=== PATIENT | female | born 2000 | race Caucasian/White ===

== ENCOUNTER 2024-01-30 12:01 | Outpatient (CLI) | payer MEDICAID ==
[2024-01-30] VITALS (9 sets, daily range): BP systolic 125–167; BP diastolic 74–113; PULSE 69–134; TEMP 98
[~2024-01-30] VITALS: Ht 167.6 cm; Wt 126.8 kg
--- NOTE | 2024-01-30 12:00 | NUR ---
PT AMBULATORY TO UNIT WITH SUPPORT PERSON. REPORTS NO LOF, NO VAGINAL BLEEDING, POSITIVE MOVEMENT. ELEVATED BP ON FIRST EXAM, EFM CAT 1.
--- NOTE | 2024-01-30 12:00 | NUR ---
ORDERS RECEIVED BY JENNIFER SILVA RN.
[~2024-01-30 12:01] MED LIST: ADVOCATE BLOOD1 EAC1 MC; CALCIUM-500 5001 CTB PO; CEPHALEXIN250 M1 PO; CEPHALEXIN500 M1 PO; CHERATUSSIN AC120 ML PO; EXPECTORANT DM240 ML; MOTRIN 800800 MG/TAB PO; NO HOME MEDICATIONS; NORMODYNE200 MG PO; PRENATAL TABLET PO; PROCARDIA XL90 MG PO; SUDANYL PE5 MG PO; TYLENOL 325MG325 MG PO; ZOLOFT 50MG50 MG PO
[2024-01-30] MEDS ORDERED: STOOL SOFTENER100 M2 PO (12:18)
[2024-01-30] MEDS ORDERED: ASPIRIN 81M81 MG/TA2 PO (12:19)
[2024-01-30] MEDS ORDERED: PRILOSEC 20MG20 MG PO (12:19)
[2024-01-30 12:58] LABS: BASO % 0.3 % (0.0-2.0); EOS # 0.1 K/mm3 (0.0-0.7); EOS % 0.9 % (0.0-4.0); GRAN % 71.7 % (42.2-75.2); HEMATOCRIT 37.1 % (37.0-47.0); HEMOGLOBIN 13.1 g/dl (12.5-16.0); LYMPH # 2.4 K/mm3 (1.2-3.4); LYMPH % 21.3 % (20.0-51.0); MEAN CELL VOLUME 87 fl (80.0-100.0); MEAN CORPUSCULAR HEMOGLOBIN 31 pg (27-31); MEAN CORPUSCULAR HGB CONC 35 g/dl (33.0-37.0); MEAN PLATELET VOLUME 9.5 fl (7.4-10.4); MONO # 0.6 K/mm3 (0.1-0.6); MONO % 5.5 % (1.7-9.3); PLATELET COUNT 263 K/mm3 (130-400); RED BLOOD COUNT 4.28 M/mm3 (4.10-5.30); REDCELL DISTRIBUTION WIDTH-CV 13.4 % (11.5-14.5)
[2024-01-30 13:01] LABS: URINE APPEARANCE CLEAR (CLEAR/HAZY); URINE BLOOD NEGATIVE (NEGATIVE); URINE COLOR YELLOW (YELLOW); URINE GLUCOSE NEGATIVE (NEGATIVE); URINE KETONE TRACE (NEGATIVE); URINE NITRATE NEGATIVE (NEGATIVE); URINE PROTEIN(semi-quant) 2+ (NEGATIVE); URINE UROBILINOGEN 0.2 E.U/dL (0.2-1.0)
--- NOTE | 2024-01-30 13:05 | NUR ---
NOTIFIED OF PTS BP AND LABS THAT HAVE RESULTED. START 24 HOUR URINE, HAVE PT RETURN IT TO HOSPITAL TOMORROW AND RETURN FOR MONITORING.
[2024-01-30] MEDS ORDERED: Betamethasone Acetate/Na Phos 6 MG/ML 5 ML MDV IM SCH (13:15)
[2024-01-30 13:21] LABS: ALBUMIN 2.3 g/dL (3.5-5.0); BILIRUBIN,TOTAL 0.2 mg/dL (0.2-1.2); CREATININE, serum 0.77 mg/dL (0.57-1.11); POTASSIUM 3.9 mEq/L (3.5-4.5); TOTAL PROTEIN 6.1 g/dl (6.2-8.1)
[2024-01-30 13:24] LABS: COLLECTION METHOD CLEAN CATCH
[2024-01-30 13:25] LABS: URINE BACTERIA OCCASIONAL /hpf (NONE SEEN); URINE RBC 0-2 /hpf (0-2)
[2024-01-30] MEDS ORDERED: NIFEdipine XL 60 MG TAB PO SCH (14:16)
== END 2024-01-30 14:30 | disposition home or self-care (01) ==
LOC: LDRO 12:01
PROVIDERS: Obstetrics & Gynecology
DX: O16.3 Unspecified maternal hypertension, third trimester (principal); Z3A.35 35 weeks gestation of pregnancy
CPT/HCPCS: J0702

== ENCOUNTER 2024-01-31 13:13 | Outpatient (CLI) | payer MEDICAID ==
[~2024-01-31] VITALS: Ht 165.1 cm; Wt 126.8 kg
[~2024-01-31 13:13] MED LIST changes: +ASPIRIN 81M81 MG/TA2 PO; +PRILOSEC 20MG20 MG PO; +STOOL SOFTENER100 M2 PO
--- NOTE | 2024-01-31 13:20 | NUR ---
PT AMBULATORY TO UNIT WITH PARTNER, PT ORIENTED TO ROOM AND PLAN OF CARE. PT ON UNIT FOR NST, TURN IN 24HR URINE TO LAB, AND REPEAT MEDICATION INJECTION. PT REPORTING SHE HAS HAD A HEADACHE SINCE 01/29 EVENING, DENIES TAKING TYLENOL. PT ALSO REPORTS THAT SHE HAS BEGUN TO FEEL OCCATIONAL LOWER BACK PAIN, BUT NOT REGULAR INTERVALS. PT DENIES VAGINAL BLEEDING AND LEAKING OF FLUID, REPORTS POSITIVE MOVEMENT, AND DENIES FEELING CONTRACTIONS.
[2024-01-31 13:45] VITALS: BP 138/86; PULSE 96; TEMP 98.2
[2024-01-31 14:00] VITALS: PULSE 90
[2024-01-31] MEDS ORDERED: Betamethasone Acetate/Na Phos 6 MG/ML 5 ML MDV IM ONE (14:00)
--- NOTE | 2024-01-31 14:00 | NUR ---
UNABLE TO TRACE PT VS DUE TO PT POSITION AND HABITUS, THIS RN AT PT BEDSIDE AT THIS TIME ATTEMPTING TO ADJUST AND TRACE ACCURATELY, PT AWAKE AND ALERT X3, EFM CAT 1.
[2024-01-31 14:15] VITALS: BP 130/82; PULSE 91
[2024-01-31 14:25] VITALS: BP 123/75; PULSE 82
--- NOTE | 2024-01-31 15:20 | NUR ---
THIS RN DISCUSSES PT DISCHARGE PLAN PER DISCHARGE ORDERS, PT SIGNS DISCHARGE PAPER AND IS VERBALLY UNDERSTANDING. PT VS STABLE, EFM CAT 1, PT AWAKE AND ALERT X3, PT PARTNER SUPPORTIVE. PT AND PT PARTNER AMBULATORY OFF UNIT WITH DISCHARGE PACKET.
[2024-01-31 15:25] LABS: URINE TOTAL VOLUME - 24 HRS 2700 mL/24 hr
[2024-01-31 15:37] LABS: PROTEIN, TOTAL URINE random 48 mg/dL
== END 2024-01-31 15:30 | disposition home or self-care (01) ==
LOC: LDRO 13:13
PROVIDERS: Obstetrics & Gynecology
DX: O13.3 Gestational [pregnancy-induced] hypertension without significant proteinuria, third trimester (principal); Z3A.35 35 weeks gestation of pregnancy
CPT/HCPCS: J0702

== ENCOUNTER 2024-02-03 04:46 | Inpatient (IN) | payer MEDICAID ==
[2024-02-03] VITALS (63 sets, daily range): BP systolic 100–187; BP diastolic 55–120; PULSE 75–140; TEMP 97.8–98.7
[~2024-02-03] VITALS: Ht 165.1 cm; Wt 127.3 kg
--- NOTE | 2024-02-03 04:55 | NUR ---
PT ARRIVED WITH COMPLAINT OF RACING HEART AFTER GETTING UP TO USE BATHROOM. SHE CHECKED HER BP AND IT WAS HIGH SO SHE CAME IN TO BE ASSESSED. STATES SHE HAS A MILD FRONTAL HEADACHE. DENIES VISUAL DISTURBANCE OR EPIGASTRIC PAIN. REPORTS ACTIVE FM, DENIES REGULAR CONTRACTIONS, ROM OR VAGINAL BLEEDING. WAS STARTED ON PROCARDIA EARLIER THIS WEEK AND HAD LABS TO EVALUATE FOR PREECLAMPSIA. SHE STATES LABS ARE PENDING. SHE TOOK HER PROCARDIA YESTERDAY AT 9AM.
[2024-02-03] MEDS ORDERED: LR 1,000 ML IV PRN (05:15)
[2024-02-03] MEDS ORDERED: DULCOLAX STOOL100 MG PO (05:20)
[2024-02-03] MEDS ORDERED: hydrALAZINE 20 MG/ML 1 ML VIAL IV PRN ×2 (06:00)
--- NOTE | 2024-02-03 06:01 | NUR ---
IV START AND LAB DRAW PER CHARGE NURSE AFTER 2 ATTEMPTS PER THIS NURSE. 0607-1ST DOSE HYDRALAZINE GIVEN PER ORDER OVER 2 MIN.
--- NOTE | 2024-02-03 06:28 | NUR ---
2ND DOSE OF HYDRALAZINE GIVEN PER ORDER OVER 2 MIN. REPORT TO DAY SHIFT
[2024-02-03 06:34] LABS: BASO % 0.2 % (0.0-2.0); EOS # 0.1 K/mm3 (0.0-0.7); EOS % 0.5 % (0.0-4.0); GRAN # 8.6 K/mm3 (1.4-6.5); GRAN % 70.6 % (42.2-75.2); HEMATOCRIT 41.2 % (37.0-47.0); HEMOGLOBIN 14.5 g/dl (12.5-16.0); LYMPH # 2.6 K/mm3 (1.2-3.4); LYMPH % 21.2 % (20.0-51.0); MEAN CELL VOLUME 88 fl (80.0-100.0); MEAN CORPUSCULAR HEMOGLOBIN 31 pg (27-31); MEAN CORPUSCULAR HGB CONC 35 g/dl (33.0-37.0); MEAN PLATELET VOLUME 9.5 fl (7.4-10.4); MONO # 0.8 K/mm3 (0.1-0.6); MONO % 6.6 % (1.7-9.3); PLATELET COUNT 290 K/mm3 (130-400); RED BLOOD COUNT 4.69 M/mm3 (4.10-5.30); REDCELL DISTRIBUTION WIDTH-CV 13.6 % (11.5-14.5)
[2024-02-03] MEDS ORDERED: LR 1,000 ML IV SCH ×2 (06:45→07:15)
[2024-02-03] MEDS ORDERED: ceFAZolin 2 G in Water For Injection,Sterile 20 ML IV ONE ×2 (06:45→07:15)
[2024-02-03] MEDS ORDERED: LR & Oxytocin 500 ML IV SCH (06:45)
[2024-02-03 07:00] LABS: ALBUMIN 2.5 g/dL (3.5-5.0); BILIRUBIN,TOTAL 0.3 mg/dL (0.2-1.2); CALCIUM 8.9 mg/dL (8.4-10.2); CREATININE, serum 0.65 mg/dL (0.57-1.11); POTASSIUM 3.8 mEq/L (3.5-4.5); TOTAL PROTEIN 6.4 g/dl (6.2-8.1)
[2024-02-03] MEDS ORDERED: Calcium Gluconate 1,000 MG (4.65 mEq)/10 ML VIAL IV PRN (07:15)
[2024-02-03] MEDS ORDERED: Magnesium Sulfate 8% 50 ML IV ONE (07:15)
[2024-02-03] MEDS ORDERED: Magnesium Sulfate 4% 50 ML IV PRN (07:15)
[2024-02-03] MEDS ORDERED: Lidocaine 2% (20 MG/ML) 20 ML UROJET UR SCH (08:42)
[2024-02-03] MEDS ORDERED: diphenhydrAMINE 25 MG CAP PO PRN (08:45)
[2024-02-03] MEDS ORDERED: diphenhydrAMINE 50 MG/ML 1 ML VIAL IV PRN (08:45)
[2024-02-03] MEDS ORDERED: Naloxone 0.4 MG/ML VIAL IV PRN ×2 (08:45→16:00)
[2024-02-03] MEDS ORDERED: ePHEDrine 50 MG/10 ML VIAL IV PRN (08:45)
[2024-02-03] MEDS ORDERED: Ondansetron 4 MG/2 ML VIAL IV PRN (08:45)
[2024-02-03] MEDS ORDERED: Magnesium Sulfate 4% 500 ML IV SCH (09:30)
[2024-02-03] MEDS ORDERED: ROPivacaine PF 0.2% 200 ML IV ONE (09:45)
--- NOTE | 2024-02-03 11:14 | NUR ---
DR ZAYAS CALLED AT 0655 TO VERIFY HYPERTENSION ORDERS, CARE TO BE ASSUMED BY DR SULLIVAN. PATIENT HAS REPEAT TREATABLE PRESSURES. HYDRALAZINE GIVEN PREVIOUSLY TWICE. AT 0630 PATIENT SVE WAS 1:30:-2. 20 MG OF LABETELOL GIVEN AT 0700. AT 0705 DR SULLIVAN HERE TO SEE PATIENT. ORDERS TO ADMIT, LR, PITOCIN AND MAG SULFATE TO BE STARTED. 2ND IV STARTED FOR MAG SULFATE, ORDERS TO HOLD ON MAG UNTIL DR SULLIVAN DONE WITH SURGERY SO SHE CAN PLACE STEARNS DUE TO PATIENTS ANXIETY OVER THE CATHETER. IV STARTED AT 0800.LR AND PITOCIN STARTED AT 0810. ANCEF GIVEN AT 0830 FOR GBS UNKNOWN. MAG SULFATE 4G BOLUS INFUSING AT 0830. AT 0850 LAURIE AT BEDSIDE TO APPLY LIDOCAINE TO URETHRA AND PLACE STEARNS CATHETER. DR SULLIVAN ALSO PERFORMED SVE AND AROM AT 0856. SVE WAS 2:50:-2. PITOCIN INCREASED PER PROTOCOL. BOUBACAR ALVES CALLED AT 0928. NO LR BOLUS GIVEN DUR TO ELEVATED BP'S. SINGLE SHOT OF EPIDURAL AT 1001. VSS BUT BP ELEVATED. ORDERS FROM BOUBACAR TO HOLD LABETELOL DUE TO EPIDURAL. PATIENT TOLERATED WELL. PATIENT TO WEDGE LEFT POSITION AND PATIENT GETTING GOOD PAIN RELIEF. WILL CONTINUE TO MONITOR
[2024-02-03] MEDS ORDERED: ceFAZolin 2 G in Water For Injection,Sterile 20 ML IV SCH (15:00)
[2024-02-03] MEDS ORDERED: ceFAZolin 1 G in Water For Injection,Sterile 10 ML IV SCH (15:11)
[2024-02-03] MEDS ORDERED: Acetaminophen 500 MG TAB PO PRN ×2 (15:15→16:00)
--- NOTE | 2024-02-03 15:34 | NUR ---
PT CALLS OUT AT 1521 STATING THAT SHE FEELS PRESSURE. THIS RN AT BEDSIDE TO PERFORM SVE. SVE /0. NURSE REMAINS AT BEDSIDE SEARCHING FOR FHTS. PT REPOSITIONED ONTO BACK. SD RN AT BEDSIDE, PT BEGINS VOMITING AT 1531. DR. SULLIVAN ENTERS ROOM UPON HEARING PT VOMITING. DR. SULLIVAN ORDERS TO SHUT OFF MAGNESIUM. DR. SULLIVAN IS GLOVING UP, DELIVERS SPONTANEOUSLY WHILE PT IS VOMITING. DR. SULLIVAN IMMEDIATELY ATTENDS TO .
[2024-02-03] MEDS ORDERED: Phenylephrine/Mineral Oil/Petrolatum 57 GM TUBE RC PRN (16:00)
[2024-02-03] MEDS ORDERED: Measles/Mumps/Rubella Virus Vaccine Live w Diluent 0.5 ML VIAL SQ SCH (16:00)
[2024-02-03] MEDS ORDERED: Loratadine 10 MG TAB PO PRN (16:00)
[2024-02-03] MEDS ORDERED: Ibuprofen 800 MG TAB PO SCH (16:00)
[2024-02-03] MEDS ORDERED: Magnes Hydrox (MOM) 80 MG/ML 30 ML CUP PO PRN (16:00)
[2024-02-03] MEDS ORDERED: oxyCODONE 5 MG TAB PO PRN (16:00)
[2024-02-03] MEDS ORDERED: Witch Hazel 50% Pads Bulk TUB TP PRN (16:00)
[2024-02-03] MEDS ORDERED: Mag/Al Hydrox/Simeth Susp 30 ML CUP PO PRN (16:00)
[2024-02-03] MEDS ORDERED: Sennosides/Docusate 8.6-50 MG TAB PO SCH (17:00)
[2024-02-03] MEDS ORDERED: NIFEdipine XL 60 MG TAB PO SCH (17:47)
--- NOTE | 2024-02-03 18:48 | NUR ---
ASSESSMENT WNL. DENIES HEADACHE OR VISUAL DISTURBANCE OR EPIGASTRIC PAIN. PT UP FOR FIRST AMBULATION POST TO BR. JR CARE DONE. PT UNABLE TO VOID AT THIS TIME. DISCUSSED BLOOD PRESSURES AND POSSIBILITY OF NEEDING MORE TREATMENT. WILL MONITOR CLOSELY.
[2024-02-03] MEDS ORDERED: NIFEdipine XL 30 MG TAB PO ONE (20:30)
--- NOTE | 2024-02-03 20:39 | NUR ---
PT WAS JUST UP TO BR. STATES VOIDED WITHOUT DIFFICULTY. SPECIMEN QUINTERO DUMPED IN TOILET AND APPEARED TO BE LARGE CLOT. PT STATES SHE VOIDED IN HAT BUT WAS NOT AWARE OF PASSING LARGE CLOT. WILL MONITOR FOR FURTHER BLEEDING.
[2024-02-03] MEDS ORDERED: traZODone 50 MG TAB PO PRN (21:00)
--- NOTE | 2024-02-03 22:02 | NUR ---
PT REMAINS IN HER LABOR ROOM WHILE MONITORING BLOOD PRESSURES CLOSELY. VOIDING WITHOUT DIFFICULTY. JUST PASSED SEVERAL SMALL TO MEDIUM CLOTS AFTER USING BREASTPUMP AND HAVING INCREASED CRAMPING. ASSISTED PT WITH JR CARE. PT DENIES HEADACHE OR LIGHTHEADEDNESS OR ANY OTHER COMPLAINTS.
[2024-02-04] VITALS (15 sets, daily range): BP systolic 103–161; BP diastolic 57–101; PULSE 76–107; TEMP 97.6–98.2
[2024-02-04] MEDS ORDERED: NIFEdipine XL 30 MG TAB PO SCH (09:00)
--- NOTE | 2024-02-04 11:00 | NUR ---
THIS RN AT NURSES STATIONT O ASK IF PATIENT NEEDS TO KEEP HER IV SITE, STATES "WE CAN GET RID OF BOTH OF THEM."
[2024-02-05 07:35] VITALS: BP 139/97; PULSE 98; TEMP 98.2
[2024-02-05] MEDS ORDERED: TRANDATE 200MG200 MG PO (08:37)
[2024-02-05] MEDS ORDERED: ADALAT CC90 MG PO (08:38)
[2024-02-05 09:40] VITALS: BP 139/91; PULSE 101
--- NOTE | 2024-02-05 10:30 | NUR ---
DISCHARGE INSTRUCTIONS REVIEWED WITH PATIENT AND SIGNIFICANT OTHER. PATIENT VERBALIZES UNDERSTANDING. PATIENT AMBULATORY OFF UNIT WITH SPOUSE AND THIS RN. PATIENT DISCHARGED IN STABLE CONDITION
== END 2024-02-05 10:30 | disposition home or self-care (01) | DRG 560 ==
LOC: LDRO 04:46 → LDR 05:13 → LDRO 06:30 → LDR 06:30 → OB 02-04 02:05
PROVIDERS: Student in an Organized Health Care Education/Training Program; ADMIT Obstetrics & Gynecology
PROC: 10E0XZZ Delivery of Products of Conception, External Approach (ICD-10-PCS; principal; 2024-02-03)
PROC: 10907ZC Drainage of Amniotic Fluid, Therapeutic from Products of Conception, Via Natural or Artificial Opening (ICD-10-PCS; 2024-02-03)
PROC: 3E033VJ Introduction of Other Hormone into Peripheral Vein, Percutaneous Approach (ICD-10-PCS; 2024-02-03)
DX: O14.14 Severe pre-eclampsia complicating childbirth (principal); Z37.0 Single live birth; O99.214 Obesity complicating childbirth; O69.81X0 Labor and delivery complicated by cord around neck, without compression, not applicable or unspecified; Z3A.36 36 weeks gestation of pregnancy
CPT/HCPCS: J0360; J0688; J1920; J2405; J2590; J2795; J3475; J7120

== ENCOUNTER 2024-02-08 18:18 | Emergency (ER) | payer MEDICAID ==
[~2024-02-08] VITALS: Ht 165.1 cm; Wt 120.9 kg
[~2024-02-08 18:18] MED LIST changes: +ADALAT CC90 MG PO; +DULCOLAX STOOL100 MG PO; +TRANDATE 200MG200 MG PO
[2024-02-08 19:08] LABS: BASO % 0.2 % (0.0-2.0); EOS # 0.2 K/mm3 (0.0-0.7); EOS % 1.6 % (0.0-4.0); GRAN # 8.5 K/mm3 (1.4-6.5); GRAN % 68.2 % (42.2-75.2); HEMATOCRIT 38.3 % (37.0-47.0); HEMOGLOBIN 12.9 g/dl (12.5-16.0); LYMPH % 24.2 % (20.0-51.0); MEAN CELL VOLUME 91 fl (80.0-100.0); MEAN CORPUSCULAR HEMOGLOBIN 31 pg (27-31); MEAN CORPUSCULAR HGB CONC 34 g/dl (33.0-37.0); MEAN PLATELET VOLUME 8.9 fl (7.4-10.4); MONO # 0.7 K/mm3 (0.1-0.6); MONO % 5.5 % (1.7-9.3); PLATELET COUNT 355 K/mm3 (130-400); RED BLOOD COUNT 4.19 M/mm3 (4.10-5.30); REDCELL DISTRIBUTION WIDTH-CV 13.8 % (11.5-14.5)
[2024-02-08 19:25] LABS: ALBUMIN 2.9 g/dL (3.5-5.0); BILIRUBIN,TOTAL 0.3 mg/dL (0.2-1.2); CALCIUM 9.6 mg/dL (8.4-10.2); CREATININE, serum 0.82 mg/dL (0.57-1.11); POTASSIUM 3.9 mEq/L (3.5-4.5)
[2024-02-08 19:54] LABS: URINE APPEARANCE CLEAR (CLEAR/HAZY); URINE BLOOD 3+ (NEGATIVE); URINE COLOR YELLOW (YELLOW); URINE GLUCOSE NEGATIVE (NEGATIVE); URINE KETONE NEGATIVE (NEGATIVE); URINE NITRATE NEGATIVE (NEGATIVE); URINE PROTEIN(semi-quant) 2+ (NEGATIVE); URINE UROBILINOGEN 0.2 E.U/dL (0.2-1.0)
[2024-02-08 20:17] LABS: COLLECTION METHOD CLEAN CATCH
[2024-02-08 21:19] VITALS: BP 128/87; PULSE 96; TEMP 98.3
== END 2024-02-08 21:25 | disposition home or self-care (01) ==
LOC: COL.ER 18:18
PROVIDERS: Personal Emergency Response Attendant
DX: O16.5 Unspecified maternal hypertension, complicating the puerperium (principal); Z79.899 Other long term (current) drug therapy
CPT/HCPCS: J1920